=== PATIENT | female | born 1985 | race Caucasian/White ===

== ENCOUNTER 2017-10-06 11:19 | Emergency (ER) | payer SELFPAY ==
[~2017-10-06] VITALS: Ht 167.6 cm; Wt 60.8 kg
[2017-10-06 11:25] VITALS: BP 113/69
--- NOTE | 2017-10-06 11:28 | NUR ---
PATIENT TO BED 3 AT THIS TIME.
--- NOTE | 2017-10-06 11:30 | NUR ---
32 YO F BIB SELF W/ C/O VAGINAL BLEEDING STARTING AT 5 AM THIS MORNING. PT IS 2 WEEKS AND HAS HX OF M/C 14 YEARS AGO, M1. 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 LIGHT BLEEDING, 1 PAD [id number], NOW LIGHT SPOTTING. LMP 09/03/2017. DENIES ANY PAIN AT THIS TIME. ER MD AWARE OF PT STATUS. PT NEEDS MET AT THIS TIME. WILL CONTINUE TO MONITOR.
--- NOTE | 2017-10-06 11:45 | NUR ---
PT TO U/S VIA W/C ACCOMPANIED BY [facility] TECH.
[2017-10-06 11:54] LABS: BASOPHILS # (AUTO) 0.3 K/uL (0.00-0.22); BASOPHILS % (AUTO) 3.1 % (0.0-2.0); EOSINOPHILS # (AUTO) 0.1 K/uL (0-0.4); EOSINOPHILS % (AUTO) 0.9 % (0.0-4.0); HEMATOCRIT 37.4 % (36-48); HEMOGLOBIN 12.3 g/dL (12.0-16.0); LYMPHOCYTES # (AUTO) 1.4 K/uL (2.5-16.5); LYMPHOCYTES % (AUTO) 16.5 % (20.5-51.1); MEAN CORPUSCULAR HEMOGLOBIN 29 pg (27-31); MEAN CORPUSCULAR HGB CONC 33 g/dL (33-37); MEAN CORPUSCULAR VOLUME 88 fL (80-94); MONOCYTES # (AUTO) 0.4 K/uL (0.8-1.0); NEUTROPHILS # (AUTO) 6.2 K/uL (1.8-7.7); NEUTROPHILS % (AUTO) 74.5 % (42.2-75.2); PLATELET COUNT (AUTO) 223 K/uL (140-450); RED BLOOD CELL COUNT(AUTO) 4.24 MIL/uL (4.20-5.40); RED CELL DISTRIBUTION WIDTH 13.7 % (11.6-13.7); WHITE BLOOD COUNT (AUTO) 8.4 K/uL (4.8-10.8)
--- NOTE | 2017-10-06 12:19 | NUR ---
PT RETURNED FROM US VIA W/C ACCOMPANIED BY [employer]. PT RETURNED TO RM 3 WITHOUT INCIDENT.
[2017-10-06 12:43] LABS: ALBUMIN 3.6 g/dL (3.4-5.0); ANION GAP 13.3 (8-16); CARBON DIOXIDE 26.4 mmol/L (21-32); CREATININE 0.7 mg/dL (0.6-1.3); POTASSIUM 3.7 mmol/L (3.5-5.1); TOTAL BILIRUBIN 0.5 mg/dL (0.0-1.0)
[2017-10-06 13:14] LABS: APPEARANCE,URINE HAZY (CLEAR); BILIRUBIN,URINE NEGATIVE (NEGATIVE); BLOOD, URINE 3+ (NEGATIVE); COLOR,URINE YELLOW (YELLOW); LEUKOCYTE ESTERASE ,URINE NEGATIVE (NEGATIVE); NITRITE, URINE NEGATIVE (NEGATIVE); PH,URINE 6.5 (5.0-9.0); UGLUCOSE NEGATIVE (NEGATIVE)
[2017-10-06 13:30] LABS: RBC,URINE 0-5 (RARE) /HPF (0-5)
--- NOTE | 2017-10-06 14:38 | NUR ---
Patient discharged with v/s stable. Written and verbal after care instructions given and explained. Patient alert, oriented and verbalized understanding of instructions. All questions addressed prior to discharge. ID band removed. Patient advised to follow up with PMD. Rx of macrobid given. Patient educated on indication of medication including possible reaction and side effects. Opportunity to ask questions provided and answered.
[2017-10-06 14:41] VITALS: BP 114/70
== END 2017-10-06 14:38 | disposition home or self-care (01) ==
LOC: MED 11:19
DX: O46.91 Antepartum hemorrhage, unspecified, first trimester (principal); O23.41 Unspecified infection of urinary tract in pregnancy, first trimester; Z3A.01 Less than 8 weeks gestation of pregnancy
CPT/HCPCS: 36415; 76801; 80053; 81001; 84702; 85025; 86900; 86901; 87086; 99285; Q0092